=== PATIENT | male | born 1960 | race Caucasian/White ===

== ENCOUNTER 2023-03-29 11:55 | Day surgery (SDC) | payer OTHER ==
[2023-03-27 13:51] VITALS: BMI 40.7
[2023-03-29] MEDS ORDERED: PROPOFOL 20 ML ONE (12:44)
[2023-03-29] MEDS ORDERED: MIDAZOLAM HCL 2 MG/2 ML SINGLE DOSE VIAL ONE (12:44)
[2023-03-29] MEDS ORDERED: DEXAMETHASONE SOD PHOSPHATE 4 MG/1 ML VIAL ONE (13:38)
[2023-03-29] MEDS ORDERED: ONDANSETRON 4 MG/2 ML VIAL ONE (13:38)
[2023-03-29] MEDS ORDERED: KETOROLAC TROMETHAMINE 30 MG/1 ML VIAL ONE (13:38)
[2023-03-29] MEDS ORDERED: ceFAZolin SODIUM 1 GM VIAL ONE (13:38)
[2023-03-29] MEDS ORDERED: ePHEDrine SULFATE 50 MG/1 ML AMPULE ONE (13:44)
[2023-03-29 16:10] VITALS: TEMP 97.7
[2023-03-29 16:13] VITALS: BP 113/73; PULSE 78; RESP 19
== END 2023-03-29 15:50 | disposition home or self-care (01) ==
LOC: FASU 11:55
PROVIDERS: ATTEND Orthopaedic Surgery Hand Surgery
PROC: 01N40ZZ Release Ulnar Nerve, Open Approach (ICD-10-PCS; principal; 2023-03-29 13:27)
DX: G56.22 Lesion of ulnar nerve, left upper limb (principal)